=== PATIENT | female | born 1935 | race Caucasian/White ===

== ENCOUNTER 2016-10-19 09:34 | Emergency (ER) | payer MEDICARE, OTHER ==
[2016-10-19] MEDS ORDERED: Acetaminophen TAB* 325 MG PO ONE (10:58)
--- NOTE | 2016-10-19 11:00 | ED ---
HPI Chest Pain - HPI Summary HPI Summary: Pt here w/ fall last night and Rt sided chest pain as a result. Was walking to her chair at home when she lost her footing and fell forward. Denies hitting her head, LOC and no head or neck pain now. She does have Rt sided rib pain, worse w/ deep breathes and with standing - better w/ lying, resting. No shortness of breath. Denies tinnitus, change in vision, nausea, vomiting, photophobia, numbness, tingling, weakness. She denies chest pain, dizziness, SOB prior to falling. Admits she has been dealing with some dizziness intermittently over the past few months but actually feels better the past 2 days - no dizziness, fatigue - feels good. Takes care of her who had a stroke 6 years ago - she does have nursing help at the house as well. DM - intermittent control - admits to going in spurts of eating lots of sweets, then has phases where she doesn't eat sweets at all. Does not check blood sugar regularly. Osteoporosis - takes calcium - not sure if she takes bisphosphonate, etc, - History of Current Complaint Chief Complaint: EDChestWallPain Time Seen by Provider: 10/19/16 10:11 Hx Obtained From: Patient, Family/Account Services Analyst - daughters Pain Intensity: 2 - Allergy/Home Medications Allergies/Adverse Reactions: Allergies Allergy/AdvReac Type Severity Reaction Status Date / Time No Known Allergies Allergy Verified 05/24/13 13:22 PMH/Surg Hx/FS Hx/Imm Hx Previously Healthy: Yes Endocrine/Hematology History: Reports: Hx Diabetes - poorly controlled Cardiovascular History: Reports: Hx Hypertension Musculoskeletal History: Reports: Hx Osteoporosis, Other Musculoskeletal History - multiple fractures Neurological History: Reports: Hx Dementia - per daughter Infectious Disease History: No Infectious Disease History: Reports: Hx Shingles Denies: Traveled Outside the [place] in Last 30 Days - Family History Known Family History: Positive: Other - breast cancer - Social History Occupation: Retired Lives: With Family - Alcohol Use: None Hx Substance Use: No Substance Use Type: Reports: None Hx Tobacco Use: No Smoking Status (MU): Never Smoked Tobacco Review of Systems Negative: Fever, Chills Negative: Photophobia, Blurred Vision, Diplopia Negative: Dental Pain Positive: Chest Pain - Rt sided rib pain - worse w/ deep breath and transition from lying to sitting Negative: Shortness Of Breath, Cough Negative: Abdominal Pain, Vomiting, Diarrhea, Nausea Positive: no symptoms reported. Negative: flank pain, hematuria Musculoskeletal: Other - see above- no neck, shoulder, arm, back pain Negative: Rash, Bruising Negative: Headache, Weakness, Paresthesia, Numbness, Syncope, Slurred Speech Psychological: Normal All Other Systems Reviewed And Are Negative: Yes Physical Exam Triage Information Reviewed: Yes Vital Signs On Initial Exam: Initial Vitals Temp Pulse Resp BP Pulse Ox 98.2 F 78 16 166/80 96 10/19/16 09:41 10/19/16 09:41 10/19/16 09:41 10/19/16 09:41 10/19/16 09:41 Vital Signs Reviewed: Yes Appearance: Positive: Well-Appearing, No Pain Distress - at rest, Obese Skin: Positive: Warm, Dry - no erythema, no ecchymosis over affected area of Rt side of chest Head/Face: Positive: Normal Head/Face Inspection Eyes: Positive: Normal, EOMI, KATHLEEN, Conjunctiva Clear ENT: Positive: Normal ENT inspection, Hearing grossly normal, Pharynx normal - mucosa moist, Other - hearing aids in place B/L - no erythema, no blood observed Neck: Positive: Supple, Nontender Respiratory/Lung Sounds: Positive: Clear to Auscultation, Breath Sounds Present - Rt mid to lower ribs w/ TTP along anterior and posterior chest wall - equal chest rise - no flail chest - has mild pain w/ deep breath while sitting. Negative: Rales, Rhonchi, Subcutaneous Emphysema, Stridor, Tracheal Deviation, Wheezes Cardiovascular: Positive: Normal, RRR, Pulses are Symmetrical in both Upper and Lower Extremities, S1, S2 - w/ occasional irregular beat (PVC?). Negative: Murmur, Rub, Leg Edema Left, Leg Edema Right Abdomen Description: Positive: Nontender, No Organomegaly, Soft Bowel Sounds: Positive: Present Musculoskeletal: Positive: Normal, Strength/ROM Intact - FROM cervical spine and UE's w/o pain; spinous pp NTTP Neurological: Positive: Normal, Sensory/Motor Intact, Alert, Oriented to Person Place, Time, CN Intact II-III Psychiatric: Positive: Normal Diagnostics - Vital Signs Vital Signs Temp Pulse Resp BP Pulse Ox 10/19/16 09:41 98.2 F 78 16 166/80 96 - Laboratory Lab Statement: Any lab studies that have been ordered have been reviewed, and results considered in the medical decision making process. Chest Pain Course/Dx - Course Course Of Treatment: Pt appears to have attained 2 rib fractures acutely - no complications and pt using incentive spirometer well. She also had findings of chronic ischemia however w/ undx'd "dizziness" over the past few months, encouraged pt to review CT findings w/ PCP for further investigation. Discussed danger s/sx of when to return w/ pt and family who voice understanding. - Diagnoses Provider Diagnoses: Multiple fractures of ribs of right side, Fall Discharge - Discharge Plan Condition: Stable Disposition: HOME Prescriptions: HYDROcodone/ACETAMIN 5-325 MG* [[place] 5-325 TAB*] 1 tab PO Q6H PRN #10 tab MDD 4 PRN Reason: Pain Patient Education Materials: Rib Fracture (ED), Fall Prevention for Older Adults (ED) Referrals: Sj Richmond MD [Primary Care Provider] - Additional Instructions: You have multiple rib fractures on the Right side of your chest. These are treated conservatively. You may apply ice, take ibuprofen every 6 hours with food, and hold a pillow over the area with coughing, sneezing, laughing. You were prescribed a stronger pain medication for breakthrough pain as well. If you are not taking deep enough breaths on your incentive spirometer because of pain, take the stronger pain medication to help you. It is important that you use your incentive spirometer multiple times a day. Follow-up with PCP next week to recheck chest/ribs. *if you develop fever, shortness of breath or difficulty breathing prior to follow-up, return to ED NOTE: your head CT today did not reveal acute findings however there is a chronic are of lacunar infarct in the Left basal ganglia. This requires follow- up with PCP - an MRI and neurology evaluation may be warranted as patient has been struggling with dizziness and per family, "not herself" for many months now. If patient develops worsening of these symptoms or new neurological deficits, return to ED.
--- NOTE | 2016-10-19 11:20 | RAD ---
Indication: Fall. On aspirin. Comparison: None. Technique: Noncontrast CT vertex of skull through foramen magnum. Report: Mild prominence of the cerebral sulci and cerebellar fissures. Unremarkable ventricles and basal cisterns. Decreased density in the periventricular and subcortical white matter while non-specific is most likely due to chronic microangiopathy. 3 mm probable chronic lacunar infarct at the RIGHT basal ganglia. Negative for blanca matter white matter obscuration, intra or extra-axial hemorrhage, or mass effect. Unremarkable orbital contents. Bone density appears decreased corresponding with osteoporosis on November 02, 2011 DEXA scan. No suspicious focal calvarial or skull base lesions evident. Negative for fracture. Grossly clear paranasal sinuses and mastoid air spaces. Negative for scalp hematoma. IMPRESSION: No evidence for traumatic brain injury or acute intracranial process. Mild involutional change and stigmata of chronic small vessel ischemic disease. 3 mm chronic lacunar infarct LEFT basal ganglia.
--- NOTE | 2016-10-19 11:48 | RAD ---
Indication: Fall. Chest pain. 2 views of the chest and shape no mediastinal shift. Heart is of normal size and configuration. Lung sosa appear clear. IMPRESSION: No active cardiopulmonary disease is noted.
--- NOTE | 2016-10-19 11:48 | RAD ---
INDICATION: Right rib injury. TECHNIQUE: 4 views of the right ribs were obtained. FINDINGS: There is a nondisplaced fracture of the right lateral eighth rib and a slightly displaced fracture of the right lateral ninth rib. IMPRESSION: FRACTURES OF THE RIGHT EIGHTH AND NINTH RIBS.
[2016-10-19 11:56] VITALS: BP 157/72
[2016-10-19] MEDS ORDERED: Lidocaine PATCH 5%* 1 PATCH TRANSDERM ONE (13:00)
[2016-10-20] MEDS ORDERED: Lidocaine Patch REMOVE* 1 NOTE MISC PATCH OFF SCH (01:00)
== END 2016-10-19 13:19 | disposition home or self-care (01) ==
LOC: ED 09:34
DX: S22.41XA Multiple fractures of ribs, right side, initial encounter for closed fracture (principal); R07.9 Chest pain, unspecified; W19.XXXA Unspecified fall, initial encounter; Y93.9 Activity, unspecified; Y92.9 Unspecified place or not applicable; Y99.9 Unspecified external cause status
CPT/HCPCS: 70450; 71020; 99282; A9270-GY

== ENCOUNTER 2017-01-17 17:25 | Emergency (ER) | payer MEDICARE, OTHER ==
--- NOTE | 2017-01-17 20:05 | RAD ---
Indication: Months LEFT lateral chest tenderness. Comparison: October 19, 2016 chest radiograph. Technique: 4 view LEFT unilateral rib series. Report: Inferolateral skin marker indicating the site of clinical concern. No LEFT rib fracture or focal osseous lesion evident. Small calcified granuloma noted in the periphery of the LEFT midlung zone without concern. Negative for pleural effusion or pneumothorax. IMPRESSION: Negative for LEFT rib fracture.
--- NOTE | 2017-01-17 20:07 | RAD ---
Indication: Pain at the T10 level 4 months. History of renal cell carcinoma. Comparison: April 13, 2011 CT. Technique: AP and lateral views thoracic spine. Report: Negative for fracture or malalignment. No suspicious focal osseous lesions evident. Diffuse degenerative spondylosis and multilevel segmental ossification of the anterior longitudinal ligament of the thoracic spine consistent with Diffuse Idiopathic Skeletal Hyperostosis (DISH) without significant interval change. Unremarkable paraspinal soft tissue contours. IMPRESSION: Multilevel thoracic degenerative spondylosis and Multilevel segmental ossification of the anterior longitudinal ligament of the thoracic spine consistent with Diffuse Idiopathic Skeletal Hyperostosis (DISH). No fracture or suspicious focal osseous lesion evident.
[2017-01-17 20:33] VITALS: BP 134/85
--- NOTE | 2017-01-17 20:33 | UC ---
Back Pain HPI - HPI Summary HPI Summary: 81 yo female with thoracic back pain radiating to left ches x months seems to come and go this is in area that she had shingles about a yr ago she did fall in OCT hx renal cell CA - History of Current Complaint Chief Complaint: UCBackPain Stated Complaint: BACK PAIN Time Seen by Provider: 01/17/17 18:09 Onset/Duration: Sudden Onset, Lasting Weeks Timing: Intermittent, Lasting Minutes Severity Initially: Moderate Severity Currently: None Pain Intensity: 0 Pain Scale Used: 0-10 Numeric Back Pain: Is Discrete @ Character: Burning Aggravating: Movement Alleviating: Position - Allergies/Home Medications Allergies/Adverse Reactions: Allergies Allergy/AdvReac Type Severity Reaction Status Date / Time No Known Allergies Allergy Verified 01/17/17 17:41 Home Medications: Home Medications DOXYcycline CAP(*) [DOXYcycline 100MG CAP(*)] 01/17/17 [History] PMH/Surg Hx/FS Hx/Imm Hx Previously Healthy: Yes Endocrine History Of: Reports: Diabetes - poorly controlled Cardiovascular History Of: Reports: Hypertension Neurological History Of: Reports: Dementia - per daughter - Surgical History Surgical History: Yes Surgery Procedure, Year, and Place: nephrectomy, hysterectomy, appendectomy, colostomy and reversal - Family History Known Family History: Positive: Hypertension, Other - breast cancer - Social History Alcohol Use: None Substance Use Type: None Smoking Status (MU): Never Smoked Tobacco Review of Systems Constitutional: Negative Skin: Negative Eyes: Negative ENT: Negative Respiratory: Negative Cardiovascular: Negative Gastrointestinal: Negative Genitourinary: Negative Motor: Negative Neurovascular: Negative Musculoskeletal: Arthralgia, Myalgia Neurological: Negative Psychological: Negative All Other Systems Reviewed And Are Negative: Yes Physical Exam Triage Information Reviewed: Yes Appearance: Well-Appearing, No Pain Distress, Well-Nourished Vital Signs: Initial Vital Signs Temp 98.2 F 01/17/17 17:47 Pulse 93 01/17/17 17:47 Resp 18 01/17/17 17:47 BP 153/82 01/17/17 17:47 Pulse Ox 97 01/17/17 17:47 Eyes: Positive: Conjunctiva Clear ENT: Positive: Hearing grossly normal. Negative: Nasal congestion, Nasal drainage, Trismus, Muffled/hoarse voice Neck: Positive: Supple Respiratory: Positive: Lungs clear, Normal breath sounds, No respiratory distress Cardiovascular: Positive: RRR, No Murmur. Negative: Tachycardia, Bradycardia Musculoskeletal: Positive: ROM Intact, No Edema Neurological: Positive: Alert Psychological Exam: Normal Skin: Negative: breakdown Back Pain Course/Dx - Differential Dx/Diagnosis Provider Diagnoses: DDD. possible post herpetic neuralgia Discharge - Discharge Plan Condition: Stable Disposition: HOME Referrals: Sj Richmond MD [Primary Care Provider] - As Soon As Possible Additional Instructions: you pain may be due to post herpetic neuralgia Images Front/Back of Body, Lg (Stokes): 1 - tender here
== END 2017-01-17 20:35 | disposition home or self-care (01) ==
LOC: UCEAST 17:25
DX: M51.34 Other intervertebral disc degeneration, thoracic region (principal); E11.9 Type 2 diabetes mellitus without complications; I10 Essential (primary) hypertension; F03.90 Unspecified dementia, unspecified severity, without behavioral disturbance, psychotic disturbance, mood disturbance, and anxiety; Z85.528 Personal history of other malignant neoplasm of kidney; Z90.5 Acquired absence of kidney; Z90.710 Acquired absence of both cervix and uterus
CPT/HCPCS: 72070; 81003; 87086; 99212; G0463

== ENCOUNTER 2018-01-02 03:16 | Inpatient (IN) | payer MEDICARE, OTHER ==
[2018-01-02] MEDS ORDERED: Ondansetron INJ* 2 MG/ML VIAL IV ONE (03:36)
[2018-01-02] MEDS ORDERED: fentaNYL* 50 MCG/ML 2 ML VIAL (100 MCG VIAL) IV SLOW PU ONE (04:26)
[2018-01-02 04:28] LABS: ABS Basophils 0.1 10^3/ul (0-0.2); ABS Eosinophils 0 10^3/ul (0-0.6); ABS Lymphocytes 0.6 10^3/ul (1.0-4.8); ABS Monocytes 1.1 10^3/ul (0-0.8); ABS Neutrophils 11.4 10^3/ul (1.5-7.7); ABS Nucleated RBC 0 10^3/ul; Eosinophil % 0 % (0-6); Hematocrit 42 % (35-47); Hemoglobin 13.9 g/dl (12.0-16.0); Lymphocyte % 4.9 % (25-47); Mean Corpuscular HGB Conc 33 g/dl (31-36); Mean Corpuscular Hemoglobin 29 pg (27-31); Mean Corpuscular Volume 88 fL (80-97); Mean Platelet Volume 8.6 um3 (7.4-10.4); Nucleated Red Blood Cells % 0; Platelet Count 193 10^3/ul (150-450); Red Blood Count 4.83 10^6/ul (4.0-5.4); Red Cell Distribution Width 15 % (10.5-15); White Blood Count 13.2 10^3/ul (3.5-10.8)
[2018-01-02 04:46] LABS: EGFR Non-African American 61.4 (>60)
[2018-01-02] MEDS ORDERED: Iohexol 300* (CONTRAST) 10 ML SDV IV ONE (04:54)
[2018-01-02] MEDS ORDERED: Iodixanol 320 (CONTRAST) 100 ML SDV IV ONE (05:50)
--- NOTE | 2018-01-02 07:05 | ED ---
Fito Conn Gabriel, scribed for Keagan Casillas MD on 01/02/18 at 0353 . Abdominal Pain/Female - HPI Summary HPI Summary: This patient is a 82 year old [facility] [place] by her daughter in law with a chief complaint of intermittent RLQ pain that began a week ago. The patient rates the pain 6/10 in severity. Patient reports SOB and fever. Hx dementia. - History of Current Complaint Chief Complaint: EDAbdPain Stated Complaint: ABD PAIN Time Seen by Provider: 01/02/18 03:27 Hx Obtained From: Patient, Family/Languages And Literature Instructor Hx From Patient Unobtainable Due To: Dementia - limited Onset/Duration: Lasting Weeks, Still Present Timing: Intermittent Episode Lasting Severity Initially: Moderate Severity Currently: Moderate Pain Intensity: 6 Pain Scale Used: 0-10 Numeric Radiates: No Associated Signs and Symptoms: Positive: Other: - SOB and Fever Allergies/Adverse Reactions: Allergies Allergy/AdvReac Type Severity Reaction Status Date / Time No Known Allergies Allergy Verified 01/17/17 17:41 PMH/Surg Hx/FS Hx/Imm Hx Endocrine/Hematology History: Reports: Hx Diabetes - poorly controlled Cardiovascular History: Reports: Hx Hypertension Musculoskeletal History: Reports: Hx Osteoporosis, Other Musculoskeletal History - multiple fractures Neurological History: Reports: Hx Dementia - per daughter - Cancer History Cancer Type, Location and Year: kidney - Surgical History Surgery Procedure, Year, and Place: nephrectomy, hysterectomy, appendectomy, colostomy and reversal Infectious Disease History: No Infectious Disease History: Reports: Hx Shingles Denies: Traveled Outside the [place] in Last 30 Days - Family History Known Family History: Positive: Hypertension, Other - breast cancer - Social History Lives: With Family Alcohol Use: None Hx Substance Use: No Substance Use Type: Reports: None Hx Tobacco Use: No Smoking Status (MU): Never Smoked Tobacco Review of Systems Positive: Fever Positive: Shortness Of Breath Positive: Abdominal Pain All Other Systems Reviewed And Are Negative: Yes Physical Exam - Summary Physical Exam Summary: Appearance: Well appearing, no pain distress Skin: warm, dry, reflects adequate perfusion Head/face: normal Eyes: EOMI, KATHLEEN ENT: mucus membranes are dry Neck: supple, non-tender Respiratory: CTA, breath sounds present Cardiovascular: tachy but regular, pulses symmetrical Abdomen: RUQ is TTP, positive murphys sign Bowel Sounds: present Musculoskeletal: normal, strength/ROM intact Neuro: normal, sensory motor intact, A&Ox3 Triage Information Reviewed: Yes Vital Signs On Initial Exam: Initial Vitals Temp Pulse Resp BP Pulse Ox 99.5 F 111 28 167/105 95 01/02/18 03:20 01/02/18 03:20 01/02/18 03:20 01/02/18 03:20 01/02/18 03:20 Vital Signs Reviewed: Yes Diagnostics - Vital Signs Vital Signs Temp Pulse Resp BP Pulse Ox 01/02/18 03:28 105 25 95 01/02/18 03:27 108 25 167/105 96 01/02/18 03:20 99.5 F 111 28 167/105 95 - Laboratory Lab Results: Lab Results 01/02/18 01/02/18 01/02/18 Range/Units 04:20 04:20 04:20 WBC 13.2 H (3.5-10.8) 10^3/ul RBC 4.83 (4.0-5.4) 10^6/ul Hgb 13.9 (12.0-16.0) g/dl Hct 42 (35-47) % MCV 88 (80-97) fL MCH 29 (27-31) pg MCHC 33 (31-36) g/dl RDW 15 (10.5-15) % Plt Count 193 (150-450) 10^3/ul MPV 8.6 (7.4-10.4) um3 Neut % (Auto) 86.7 H (38-83) % Lymph % (Auto) 4.9 L (25-47) % [place] % (Auto) 8.0 H (0-7) % Eos % (Auto) 0 (0-6) % Baso % (Auto) 0.4 (0-2) % Absolute Neuts (auto) 11.4 H (1.5-7.7) 10^3/ul Absolute Lymphs (auto) 0.6 L (1.0-4.8) 10^3/ul Absolute Monos (auto) 1.1 H (0-0.8) 10^3/ul Absolute Eos (auto) 0 (0-0.6) 10^3/ul Absolute Basos (auto) 0.1 (0-0.2) 10^3/ul Absolute Nucleated RBC 0 10^3/ul Nucleated RBC % 0 Sodium 134 L (139-145) mmol/L Potassium 3.9 (3.5-5.0) mmol/L Chloride 100 L (101-111) mmol/L Carbon Dioxide 24 (22-32) mmol/L Anion Gap 10 (2-11) mmol/L BUN 20 (6-24) mg/dL Creatinine 0.88 (0.51-0.95) mg/dL Est GFR ( Amer) 78.9 (>60) Est GFR (Non-Af Amer) 61.4 (>60) BUN/Creatinine Ratio 22.7 H (8-20) Glucose 226 H (70-100) mg/dL Lactic Acid 1.4 (0.5-2.0) mmol/L Calcium 9.5 (8.6-10.3) mg/dL Total Bilirubin 0.70 (0.2-1.0) mg/dL AST 38 (13-39) U/L ALT 12 (7-52) U/L Alkaline Phosphatase 39 (34-104) U/L Troponin I 0.02 (<0.04) ng/mL C-Reactive Protein 61.77 H (< 5.00) mg/L Total Protein 7.4 (6.4-8.9) g/dL Albumin 4.0 (3.2-5.2) g/dL Globulin 3.4 (2-4) g/dL Albumin/Globulin Ratio 1.2 (1-3) Lipase 22 (11.0-82.0) U/L Result Diagrams: 01/02/18 04:20 01/02/18 04:20 Lab Statement: Any lab studies that have been ordered have been reviewed, and results considered in the medical decision making process. - Radiology CXR Radiology Interpretation Completed By: ED Physician - chronic changes no acute findings - CT CT ABD/Pelvis CT Interpretation Completed By: Radiologist - large right intrahepatic and right paraspinal soft tissue masses within or adjacent to the right renal fossa likely represent recurrent neoplasm. Multiple splenic hilar masses are also consistent with metastases possible lymph nodes. Small splenic infarct may be acute , possibly related to emboli were tumor compression of the splenic artery. Left adrenal nodule may be adenoma or metastases. Questionable lytic metastases in T7 and T8. Minimal perihepatic tiny nonspecific right hepatic lobe hypo density. 1.4cm hypodensity of the pancreas may be a psuedocyst ED physician has reviewed this radiology report. - EKG 0338 Cardiac Rate: Tachycardia EKG Rhythm: Sinus Tachycardia - at [address] Segment: Non-Specific EKG Interpretation: non specific intraventricular conduction delay, normal axis Re-Evaluation - Re-Evaluation First Eval Change: Improved Abdominal Pain Fem Course/Dx - Course Course Of Treatment: Patient with right-sided abdominal pain that seems worse in the right upper quadrant. Her history is somewhat limited by dementia. She is sure she had several abdominal surgeries but is not entirely sure which. Her pain is modest at this time. CT scan shows widespread tumor burden likely related to her prior history of renal cell carcinoma. There is also splenic infarct and possible tumor compression of the splenic artery. She has lytic lesions noted in the spine. I have presented this to the family and shown them the imaging. They wish to have the patient admitted here given that her requires total care at home from stroke. As such, I have discussed the case with the hospitalist who will evaluate and admit. - Diagnoses Provider Diagnoses: Right sided abdominal pain, Renal cell cancer, Metastatic cancer, Splenic infarct - Provider Notifications Discussed Care Of Patient With: Marek Sawyer - states he will feel come down, evaluate and make disposition. Time Discussed With Above Provider: 06:50 Instructed by Provider To: Admit As Inpatient Discharge - Sign-Out/Discharge Documenting (check all that apply): Discharge/Admit/Transfer - admitted - Discharge Plan Condition: Fair Disposition: ADMITTED TO [facility] Referrals: Sj Richmond MD [Primary Care Provider] - - Billing Disposition and Condition Condition: FAIR Disposition: [facility] The documentation as recorded by the Fito bustamante Gabriel accurately reflects the service I personally performed and the decisions made by me, Keagan Casillas MD.
[2018-01-02 08:30] LABS: Urine Appearance Clear; Urine Blood Negative (Negative); Urine Color Yellow; Urine Ketones Trace (Negative); Urine Protein 2+(100 mg/dL) (Negative); Urine Specific Gravity > 1.060 (1.010-1.030); Urine Urobilinogen Negative (Negative)
--- NOTE | 2018-01-02 08:43 | RAD ---
INDICATION: Upper abdominal pain. COMPARISON: Correlation is made with a prior chest x-ray study from October 19, 2016. TECHNIQUE: A portable upright view of the chest was obtained. FINDINGS: The heart is within normal limits in size for this portable exam. The lungs are underinflated and grossly clear. No pleural effusion is seen. No free intraperitoneal air is appreciated. IMPRESSION: NO EVIDENCE FOR ACUTE FINDING.
--- NOTE | 2018-01-02 08:53 | CONSULT ---
Subjective Date of Service: 01/02/18 Interval History: The patient was in her usual state of health until 2 days ago when she started having vomiting. About 2 AM today her called one of his children to say she had abdominal pain. He activated their emergency alert system. The patient has not vomited here. She got 1 dose of fentanyl 25 mcg at 04:27 hrs. She drank some water. I spoke with Toan Gonzalez, and Basilio. Dr. Richmond will order a CT- guided bx of her R flank mass and request an appt with YESSY for 2 days after the bx. I transmitted rx's for ondansetron ODT and hydrocodone/APAP /325 to Danis Gold. The patient is alert, sociable and cooperative. She can answer questions about her condition and can state her full name. Review of Systems - Measurements Intake and Output: Intake and Output Last 24 Hours 12/31/17 01/01/18 01/02/18 01/03/18 06:59 06:59 06:59 06:59 Weight 190 lb Objective Vital Signs - 8 hr 01/02/18 01/02/18 01/02/18 03:20 03:27 03:28 Temperature 99.5 F Pulse Rate 111 108 105 Respiratory 28 25 25 Rate Blood Pressure 167/105 167/105 (mmHg) O2 Sat by Pulse 95 96 95 Oximetry 01/02/18 01/02/18 01/02/18 03:57 04:00 04:35 Temperature Pulse Rate 105 112 Respiratory 19 25 20 Rate Blood Pressure 165/97 (mmHg) O2 Sat by Pulse 96 96 Oximetry 01/02/18 01/02/18 01/02/18 04:56 04:57 05:00 Temperature Pulse Rate 108 119 116 Respiratory 23 24 22 Rate Blood Pressure 169/96 165/97 (mmHg) O2 Sat by Pulse 91 91 91 Oximetry 01/02/18 01/02/18 01/02/18 05:27 05:57 06:00 Temperature Pulse Rate 117 117 114 Respiratory 24 23 22 Rate Blood Pressure 172/101 165/95 (mmHg) O2 Sat by Pulse 93 90 90 Oximetry 01/02/18 01/02/18 01/02/18 06:27 06:57 07:00 Temperature Pulse Rate 116 114 112 Respiratory 22 26 24 Rate Blood Pressure 132/76 154/90 (mmHg) O2 Sat by Pulse 93 92 93 Oximetry 01/02/18 01/02/18 01/02/18 07:06 07:29 07:57 Temperature Pulse Rate 115 129 121 Respiratory 20 31 Rate Blood Pressure 154/90 129/101 126/92 (mmHg) O2 Sat by Pulse 93 95 93 Oximetry 01/02/18 08:00 Temperature Pulse Rate 118 Respiratory Rate Blood Pressure (mmHg) O2 Sat by Pulse 93 Oximetry Result Diagrams: 01/02/18 04:20 01/02/18 04:20 Additional Lab and Data: Lab Results 01/02/18 01/02/18 01/02/18 Range/Units 04:20 04:20 04:20 WBC 13.2 H (3.5-10.8) 10^3/ul RBC 4.83 (4.0-5.4) 10^6/ul Hgb 13.9 (12.0-16.0) g/dl Hct 42 (35-47) % MCV 88 (80-97) fL MCH 29 (27-31) pg MCHC 33 (31-36) g/dl RDW 15 (10.5-15) % Plt Count 193 (150-450) 10^3/ul MPV 8.6 (7.4-10.4) um3 Neut % (Auto) 86.7 H (38-83) % Lymph % (Auto) 4.9 L (25-47) % [place] % (Auto) 8.0 H (0-7) % Eos % (Auto) 0 (0-6) % Baso % (Auto) 0.4 (0-2) % Absolute Neuts (auto) 11.4 H (1.5-7.7) 10^3/ul Absolute Lymphs (auto) 0.6 L (1.0-4.8) 10^3/ul Absolute Monos (auto) 1.1 H (0-0.8) 10^3/ul Absolute Eos (auto) 0 (0-0.6) 10^3/ul Absolute Basos (auto) 0.1 (0-0.2) 10^3/ul Absolute Nucleated RBC 0 10^3/ul Nucleated RBC % 0 Sodium 134 L (139-145) mmol/L Potassium 3.9 (3.5-5.0) mmol/L Chloride 100 L (101-111) mmol/L Carbon Dioxide 24 (22-32) mmol/L Anion Gap 10 (2-11) mmol/L BUN 20 (6-24) mg/dL Creatinine 0.88 (0.51-0.95) mg/dL Est GFR ( Amer) 78.9 (>60) Est GFR (Non-Af Amer) 61.4 (>60) BUN/Creatinine Ratio 22.7 H (8-20) Glucose 226 H (70-100) mg/dL Lactic Acid 1.4 (0.5-2.0) mmol/L Calcium 9.5 (8.6-10.3) mg/dL Total Bilirubin 0.70 (0.2-1.0) mg/dL AST 38 (13-39) U/L ALT 12 (7-52) U/L Alkaline Phosphatase 39 (34-104) U/L Troponin I 0.02 (<0.04) ng/mL C-Reactive Protein 61.77 H (< 5.00) mg/L Total Protein 7.4 (6.4-8.9) g/dL Albumin 4.0 (3.2-5.2) g/dL Globulin 3.4 (2-4) g/dL Albumin/Globulin Ratio 1.2 (1-3) Lipase 22 (11.0-82.0) U/L Assessment/Plan - Billing Plan By Medical Problem: 1. 2. VTE PPX: Diet: Code Status: Admission Status and Rationale:
--- NOTE | 2018-01-02 09:04 | RAD ---
CLINICAL HISTORY: Right upper quadrant pain. Relevant surgical history includes left nephrectomy, hysterectomy, appendectomy and colostomy with subsequent reversal. COMPARISON: Most recent comparison CT examination is dated January 11, 2009 TECHNIQUE: Contrast enhanced CT examination of the abdomen and pelvis from the lung bases through the initial tuberosities. The patient received 96 mL Visipaque 320 intravenously prior to imaging. FINDINGS: Unless otherwise specified comparisons below reference to January 11, 2009 CT. VISUALIZED LUNG BASES: There are hypoventilatory changes at the bilateral lung bases more severely on the right and left. There is a slight right-sided pleural effusion. ABDOMEN AND PELVIS: There is a small amount of perihepatic fluid. Stable subcentimeter hypodensities in the right lobe of the liver unchanged from the prior CT examination. The spleen and pancreas are normal in appearance. Medial to the spleen are multiple soft tissue masses the largest measuring 3.2 x 4 cm in the axial plane (axial image 21). At the left adrenal gland there is a soft tissue lesion measuring 1.2 x 1.8 cm in the axial plane increased from 1 cm on the previous CT examination. The right adrenal gland appears to be normal. The gallbladder is normal. The left kidney is normal. The patient is status post right nephrectomy. Abutting the posterior inferior margin of the right lobe of the liver there is a soft tissue mass measuring approximately 6.3 x 8 cm in the axial plane and 6.1 cm in the cephalocaudal dimension. More inferiorly there is gross enlargement of right retroperitoneal lymph nodes adjacent to the right lateral margin of the spine measuring up to 5.6 x 4.2 cm in the axial plane. Evaluation of the gastrointestinal tract is limited without oral contrast. The small and large bowel are not distended. Consistent with the patient's surgical history the appendix is not visualized. There are scattered rectosigmoid diverticula but no focal inflammatory change of the bowel. Despite reports of hysterectomy, the appropriately atrophic and partially calcified uterus is seen. There is trace fluid in the pelvis. The abdominal aorta and iliac arteries are normal in course and diameter. The patient is status post transpedicular posterior dario fixation of L4/L5. Degenerative changes of the lower thoracic and lumbar spine are noted. There are no suspicious bone lesions. IMPRESSION: 1. Presumably the patient's right nephrectomy was due to renal cell carcinoma. The findings on today's CT examination indicate recurrence of malignancy in the right renal bed with lymphadenopathy in the right retroperitoneal lymph nodes and with either lymph nodes or soft tissue implants immediately medial to the spleen. 2. The patient's surgical history includes hysterectomy though the uterus appears to be visible in the pelvis. Please confirm the patient's surgical history. 3. There is free fluid in the pelvis which is considered abnormal for a postmenopausal woman and may be related to additional metastases related to the process described above. 4. Additional chronic, degenerative and iatrogenic findings described in body the report.
--- NOTE | 2018-01-02 10:50 | ADMNOTE ---
Subjective Date of Service: 01/02/18 Interval History: ADMISSION HISTORY AND PHYSICAL EXAM: Allergies Allergy/AdvReac Type Severity Reaction Status Date / Time No Known Allergies Allergy Verified 01/17/17 17:41 Home Medications Medication Instructions Recorded Confirmed Type Aspirin EC TAB* [Ecotrin EC Low 81 mg PO DAILY 11/17/15 01/02/18 History Dose*] Losartan TAB* [Cozaar TAB*] 50 mg PO DAILY 11/17/15 01/02/18 History Pioglitazone TAB* [Actos TAB*] 30 mg PO DAILY 11/17/15 01/02/18 History metFORMIN* [Glucophage*] 1,000 mg PO QAM 11/17/15 01/02/18 History metFORMIN* [Glucophage*] 500 mg PO BEDTIME 11/17/15 01/02/18 History Cholecalciferol TAB* [Vitamin D 1,000 unit PO DAILY 01/02/18 01/02/18 History TAB*] Hydrocodone/Acetaminophen 1 each PO Q3H PRN #40 tablet MDD 4 01/02/18 Rx [Hydrocodone-Acetamin 5-325 mg] Memantine TAB* [Namenda TAB*] 10 mg PO DAILY 01/02/18 01/02/18 History Ondansetron [Ondansetron Odt] 4 mg PO Q3H PRN #30 tab.rapdis 01/02/18 Rx HPI: The patient was in her usual state of health until about 2 days ago when she had intermiitent emesis. During the last night she c/o abdominal pain. Her activated their emergency call button and also called a family member. The patient herslef has very poor memory and cannot give an accurate history. She admists to some abd pain now, denies nausea. Family History: Findings - Unremarkable Social History: Findings - Live withe her . Her daughter Amina is her SDM. No alcohol or tobacco use. 6 children. Past Medical History: Findings - R nephrectomy 12/2005 for renal cell ca. Dementia, DM. Review of Systems - Measurements Intake and Output: Intake and Output Last 24 Hours 12/31/17 01/01/18 01/02/18 01/03/18 06:59 06:59 06:59 06:59 Weight 190 lb - Review of Systems Constitutional Symptoms: Negative: Weight Gain, Weight Loss, Weakness, Fatigue, Fever, Night Sweats, Unexplained Falls, Other Dermatology: Positive: Normal HEENT: Positive: Normal Eyes: Positive: Normal Thyroid: Positive: Normal Pulmonary: Positive: Normal Gastroenterology: Positive: Abdominal Pain, Vomiting Genital - Urinary: Positive: Normal Musculoskeletal: Negative: Joint Pain, Joint Stiffness, Arthritis, Osteoporosis, Low Back Pain , Sciatica, Joint Deformities, Kyphoscoliosis, Other Endocrinology: Positive: Normal Neurology: Positive: Other - dementia Psychiatry: Positive: Normal Allergic/Immunologic: Negative: Hx Anaphylaxis, Hx Angioedema, Hx Environmental, Hx Seasonal, Athsma, Hx HIV, Immunocompromise, Swollen Glands LymphNodes, Other Objective Vital Signs - 8 hr 01/02/18 01/02/18 01/02/18 03:20 03:27 03:28 Temperature 99.5 F Pulse Rate 111 108 105 Respiratory 28 25 25 Rate Blood Pressure 167/105 167/105 (mmHg) O2 Sat by Pulse 95 96 95 Oximetry 01/02/18 01/02/18 01/02/18 03:57 04:00 04:35 Temperature Pulse Rate 105 112 Respiratory 19 25 20 Rate Blood Pressure 165/97 (mmHg) O2 Sat by Pulse 96 96 Oximetry 01/02/18 01/02/18 01/02/18 04:56 04:57 05:00 Temperature Pulse Rate 108 119 116 Respiratory 23 24 22 Rate Blood Pressure 169/96 165/97 (mmHg) O2 Sat by Pulse 91 91 91 Oximetry 01/02/18 01/02/18 01/02/18 05:27 05:57 06:00 Temperature Pulse Rate 117 117 114 Respiratory 24 23 22 Rate Blood Pressure 172/101 165/95 (mmHg) O2 Sat by Pulse 93 90 90 Oximetry 01/02/18 01/02/18 01/02/18 06:27 06:57 07:00 Temperature Pulse Rate 116 114 112 Respiratory 22 26 24 Rate Blood Pressure 132/76 154/90 (mmHg) O2 Sat by Pulse 93 92 93 Oximetry 01/02/18 01/02/18 01/02/18 07:06 07:29 07:57 Temperature Pulse Rate 115 129 121 Respiratory 20 31 Rate Blood Pressure 154/90 129/101 126/92 (mmHg) O2 Sat by Pulse 93 95 93 Oximetry 01/02/18 08:00 Temperature Pulse Rate 118 Respiratory Rate Blood Pressure (mmHg) O2 Sat by Pulse 93 Oximetry Oxygen Devices in Use Now: None - Alert, partly up in bed. In good spirits. Looks comfortable. Eyes: No Scleral Icterus Neck: NL Appearance and Movements; NL JVP, No Thyroid Enlargement, Masses Respiratory: Symmetrical Chest Expansion and Respiratory Effort, Clear to Auscultation, Clear to Percussion Abdominal: NL Sounds; No Tenderness; No Distention, No Hepatosplenomegaly, - Extremities: No Edema, No Clubbing, Cyanosis, - Skin: No Nodules or Sclerosis, - - seborrhea Neurological: NL Sensation, - - Able to state her full name. No tremor. Poor memory. DUNAWAY. Result Diagrams: 01/02/18 04:20 01/02/18 04:20 Additional Lab and Data: Lab Results 01/02/18 01/02/18 01/02/18 Range/Units 04:20 04:20 04:20 WBC 13.2 H (3.5-10.8) 10^3/ul RBC 4.83 (4.0-5.4) 10^6/ul Hgb 13.9 (12.0-16.0) g/dl Hct 42 (35-47) % MCV 88 (80-97) fL MCH 29 (27-31) pg MCHC 33 (31-36) g/dl RDW 15 (10.5-15) % Plt Count 193 (150-450) 10^3/ul MPV 8.6 (7.4-10.4) um3 Neut % (Auto) 86.7 H (38-83) % Lymph % (Auto) 4.9 L (25-47) % [place] % (Auto) 8.0 H (0-7) % Eos % (Auto) 0 (0-6) % Baso % (Auto) 0.4 (0-2) % Absolute Neuts (auto) 11.4 H (1.5-7.7) 10^3/ul Absolute Lymphs (auto) 0.6 L (1.0-4.8) 10^3/ul Absolute Monos (auto) 1.1 H (0-0.8) 10^3/ul Absolute Eos (auto) 0 (0-0.6) 10^3/ul Absolute Basos (auto) 0.1 (0-0.2) 10^3/ul Absolute Nucleated RBC 0 10^3/ul Nucleated RBC % 0 Sodium 134 L (139-145) mmol/L Potassium 3.9 (3.5-5.0) mmol/L Chloride 100 L (101-111) mmol/L Carbon Dioxide 24 (22-32) mmol/L Anion Gap 10 (2-11) mmol/L BUN 20 (6-24) mg/dL Creatinine 0.88 (0.51-0.95) mg/dL Est GFR ( Amer) 78.9 (>60) Est GFR (Non-Af Amer) 61.4 (>60) BUN/Creatinine Ratio 22.7 H (8-20) Glucose 226 H (70-100) mg/dL Lactic Acid 1.4 (0.5-2.0) mmol/L Calcium 9.5 (8.6-10.3) mg/dL Total Bilirubin 0.70 (0.2-1.0) mg/dL AST 38 (13-39) U/L ALT 12 (7-52) U/L Alkaline Phosphatase 39 (34-104) U/L Troponin I 0.02 (<0.04) ng/mL C-Reactive Protein 61.77 H (< 5.00) mg/L Total Protein 7.4 (6.4-8.9) g/dL Albumin 4.0 (3.2-5.2) g/dL Globulin 3.4 (2-4) g/dL Albumin/Globulin Ratio 1.2 (1-3) Lipase 22 (11.0-82.0) U/L Assess/Plan/Problems-Billing Plan By Medical Problem: 1. 2. VTE PPX: Diet: Code Status: Admission Status and Rationale: - Patient Problems (1) Renal cell carcinoma Current Visit: Yes Status: Acute Code(s): C64.9 - MALIGNANT NEOPLASM OF UNSP KIDNEY, EXCEPT RENAL PELVIS SNOMED Code(s): 137694067 Comment: CT guided bx requested. Start fentanyl patch 12 mcg/hr, prn oxycodone, prn ondansetron. IV fluids for 2 L. (2) Diabetes Current Visit: Yes Status: Acute Code(s): E11.9 - TYPE 2 DIABETES MELLITUS WITHOUT COMPLICATIONS SNOMED Code(s): 42619683 Comment: Hold metformin, pioglitazone. Lispro by [facility]. (3) Dementia Current Visit: Yes Status: Acute Code(s): F03.90 - UNSPECIFIED DEMENTIA WITHOUT BEHAVIORAL DISTURBANCE SNOMED Code(s): 27408372 Comment: Patient felt to not be safe at home by her family. PT/OT alex. (4) HTN (hypertension) Current Visit: Yes Status: Acute Code(s): I10 - ESSENTIAL (PRIMARY) HYPERTENSION SNOMED Code(s): 14534022 Comment: Hold losartan. (5) Emesis Current Visit: Yes Status: Acute Code(s): R11.10 - VOMITING, UNSPECIFIED SNOMED Code(s): 494787410 Comment: PRN ondansetron ODT. 2 L IV fluids then d/c.
[2018-01-02] MEDS ORDERED: Dextrose 50% Syringe 50 ML* 25 GM/50 ML SYRINGE IV PUSH PRN (11:03)
[2018-01-02] MEDS: fentaNYL PATCH 12 MCG/HR TRANSDERM SCH (12:33)
[2018-01-02] MEDS: Insulin LISPRO* 1 UNITS UNIT SUBCUT SCH ×3 (12:34→22:13)
[2018-01-02] MEDS: HYDROcodone/ACETAMIN 5-325 MG* 1 TAB PO PRN (13:41)
[2018-01-02] MEDS: Ondansetron ODT TAB* 4 MG SL PRN ×2 (13:42→22:02)
[2018-01-02] MEDS: D5LR 20 MEQ KCL 1000 ML BAG* 1,000 ML IV SCH ×2 (13:56→22:18)
[2018-01-03] MEDS: hydrALAZINE IV* 20 MG/ML VIAL IV PRN (04:07)
[2018-01-03] MEDS ORDERED: Metoprolol Tartrate IV* 1 MG/ML 5 ML VIAL IV ONE (06:14)
[2018-01-03] MEDS ORDERED: Metoprolol Tartrate IV* 1 MG/ML 5 ML VIAL ONE (06:21)
[2018-01-03 06:36] LABS: Platelet Count 159 10^3/ul (150-450)
[2018-01-03 07:03] LABS: INR 1.14 (0.77-1.02)
--- NOTE | 2018-01-03 07:40 | RAD ---
INDICATION: Soft tissue mass in the right renal fossa in a woman with a history of nephrectomy for renal cell cancer. COMPARISON: CT of the abdomen and pelvis January 02, 2018 TECHNIQUE: Real time ultrasound images of the right renal fossa were acquired in katz scale and Doppler color flow. FINDINGS: Evaluation of the right renal fossa shows a soft tissue mass below the posterior margin of the right lobe of the liver measuring 6.1 x 4.5 x 4.7 cm. More medially there is a second mass measuring 6.4 x 3.3 x 5.1 cm. Trace fluid fluid is also seen. IMPRESSION: 2 soft tissue mass in the right renal fossa corresponding to masses seen on the same day CT of the abdomen and pelvis. These appear to be amenable to ultrasound-guided biopsy.
[2018-01-03] MEDS: fentaNYL Patch Check Q Shift 1 NOTE SCH ×2 (07:54→19:26)
[2018-01-03] MEDS: Insulin LISPRO* 1 UNITS UNIT SUBCUT SCH ×4 (08:56→20:52)
[2018-01-03] MEDS: HYDROcodone/ACETAMIN 5-325 MG* 1 TAB PO PRN (08:57)
[2018-01-03] MEDS: Memantine TAB* 10 MG PO SCH (08:58)
[2018-01-03] MEDS: Cholecalciferol TAB* 1000 UNITS PO SCH (08:59)
[2018-01-03] MEDS ORDERED: Pioglitazone TAB* 30 MG PO SCH (09:00)
[2018-01-03] MEDS ORDERED: fentaNYL* 50 MCG/ML 2 ML VIAL (100 MCG VIAL) ONE (11:49)
--- NOTE | 2018-01-03 15:11 | RAD ---
INDICATION: Subhepatic right renal fossa soft tissue mass in a patient with a history of renal cell carcinoma. COMPARISON: CT abdomen and pelvis January 02, 2018 The benefits and risks of procedure explained to the patient and the patient's daughter and the patient's daughter signed informed consent. Multiple images of the right flank were obtained. The soft tissue mass in question was identified and a percutaneous tract was determined. A time out was performed before beginning the procedure. The patient was prepped and draped in the usual sterile fashion. The skin and tissue overlying the lymph node were anesthetized with 1% lidocaine. Percutaneously, a fine needle aspiration was obtained and provided to the attending cytopathologist. The cytopathologist indicated that preliminary evaluation demonstrated adequate sampling for diagnosis. According to the same technique as above additional fine-needle aspirations were acquired to assure adequate diagnostic volume. The post procedure ultrasound demonstrates no evidence for hematoma. The site was dressed with a sterile dressing. The patient tolerated procedure well without incident. IMPRESSION: Uncomplicated ultrasound-guided fine-needle aspiration of right subhepatic soft tissue mass in the right renal fossa.
--- NOTE | 2018-01-03 19:52 | PN ---
Subjective Date of Service: 01/03/18 Interval History: no new c/o s/p renal bx without complication patient now walking in hallway with family plan for placement--[facility] at [facility] . Family History: Findings - Unremarkable Social History: Findings - Live withe her . Her daughter Amina is her SDM. No alcohol or tobacco use. 6 children. Past Medical History: Findings - R nephrectomy 12/2005 for renal cell ca. Dementia, DM. Objective Active Medications: . Hydrocodone Bitart/Acetaminophen ([place] 5-325 Tab*) 1 tab PO Q3H PRN PRN Reason: PAIN - MODERATE Last Admin: 01/03/18 08:57 Dose: 1 tab Aspirin (Aspirin Ec Tab*) 81 mg PO DAILY [facility] Cholecalciferol (Vitamin D Tab*) 1,000 units PO DAILY [facility] Last Admin: 01/03/18 08:59 Dose: 1,000 units Dextrose (D50w Syringe 50 Ml*) 12.5 gm IV PUSH .FOR FS < 60 - SS PRN PRN Reason: FS < 60 Fentanyl (Duragesic Patch 12 Mcg/Hr *) 12 mcg TRANSDERM Q72H [facility] Last Admin: 01/02/18 12:33 Dose: 12 mcg Hydralazine HCl (Apresoline Iv*) 10 mg IV Q4H PRN PRN Reason: Systolic >170 Last Admin: 01/03/18 04:07 Dose: 10 mg Insulin Human Lispro (Humalog*) 0 units SUBCUT ACHS [facility] PRN Reason: Protocol Last Admin: 01/03/18 16:42 Dose: 9 units Memantine (Namenda Tab*) 10 mg PO DAILY [facility] Last Admin: 01/03/18 08:58 Dose: 10 mg Ondansetron HCl (Zofran Odt Tab*) 4 mg SL Q4H PRN PRN Reason: NAUSEA/VOMITING Last Admin: 01/02/18 22:02 Dose: 4 mg Pharmacy Profile Note (Fentanyl Patch Check Q Shift) 1 note N/A 0700,1900 [facility] Last Admin: 01/03/18 19:26 Dose: 1 note . Vital Signs - 8 hr 01/03/18 01/03/18 01/03/18 12:45 12:53 12:59 Temperature 97.9 F 97.9 F Pulse Rate 111 111 Respiratory 18 18 18 Rate Blood Pressure 125/62 125/62 (mmHg) O2 Sat by Pulse 94 94 Oximetry 01/03/18 01/03/18 01/03/18 13:14 13:17 15:14 Temperature 99.9 F 100.1 F 100.0 F Pulse Rate 108 108 118 Respiratory 18 16 24 Rate Blood Pressure 134/61 145/77 144/67 (mmHg) O2 Sat by Pulse 95 94 94 Oximetry Oxygen Devices in Use Now: None Appearance: NAD, demented Eyes: No Scleral Icterus, PERRLA Ears/Nose/Mouth/Throat: Clear Oropharnyx Neck: NL Appearance and Movements; NL JVP, Trachea Midline Respiratory: Symmetrical Chest Expansion and Respiratory Effort Cardiovascular: NL Sounds; No Murmurs; No JVD, RRR Abdominal: NL Sounds; No Tenderness; No Distention Lymphatic: No Cervical Adenopathy Extremities: No Edema Skin: No Rash or Ulcers Neurological: NL Sensation Lines/Tubes/Other Access: Clean, Dry and Intact Peripheral IV Nutrition: Taking PO's Result Diagrams: 01/03/18 06:12 01/02/18 04:20 Additional Lab and Data: . Assess/Plan/Problems-Billing . Plan By Medical Problem: - Patient Problems (1) Renal cell carcinoma Current Visit: Yes Status: Acute Code(s): C64.9 - MALIGNANT NEOPLASM OF UNSP KIDNEY, EXCEPT RENAL PELVIS Comment: CT guided bx requested; done on 01/03/18 without complication. Continue fentanyl patch 12 mcg/hr, prn oxycodone, prn ondansetron. (2) Dementia Current Visit: Yes Status: Chronic Priority: High Code(s): F03.90 - UNSPECIFIED DEMENTIA WITHOUT BEHAVIORAL DISTURBANCE Comment: Patient felt to NOT be safe at home by her family. PT/OT eval. Placement efforts underway (3) Diabetes Current Visit: Yes Status: Chronic Priority: High Code(s): E11.9 - TYPE 2 DIABETES MELLITUS WITHOUT COMPLICATIONS SNOMED Code(s): 16016755 Comment: Hold metformin, pioglitazone. Lispro by [facility]. (4) Emesis Current Visit: Yes Status: Chronic Priority: High Code(s): R11.10 - VOMITING, UNSPECIFIED Comment: PRN ondansetron ODT. (5) HTN (hypertension) Current Visit: Yes Status: Chronic Priority: Medium Code(s): I10 - ESSENTIAL (PRIMARY) HYPERTENSION Comment: Hold losartan.
[2018-01-04 06:52] LABS: ABS Basophils 0.1 10^3/ul (0-0.2); ABS Eosinophils 0 10^3/ul (0-0.6); ABS Monocytes 1.4 10^3/ul (0-0.8); ABS Neutrophils 11.1 10^3/ul (1.5-7.7); ABS Nucleated RBC 0 10^3/ul; Eosinophil % 0.1 % (0-6); Hematocrit 34 % (35-47); Hemoglobin 11.6 g/dl (12.0-16.0); Lymphocyte % 7.2 % (25-47); Mean Corpuscular HGB Conc 34 g/dl (31-36); Mean Corpuscular Hemoglobin 30 pg (27-31); Mean Corpuscular Volume 87 fL (80-97); Mean Platelet Volume 8.8 um3 (7.4-10.4); Nucleated Red Blood Cells % 0; Platelet Count 163 10^3/ul (150-450); Red Blood Count 3.89 10^6/ul (4.0-5.4); Red Cell Distribution Width 15 % (10.5-15); White Blood Count 13.6 10^3/ul (3.5-10.8)
[2018-01-04] MEDS: fentaNYL Patch Check Q Shift 1 NOTE SCH ×2 (07:00→18:29)
[2018-01-04 07:06] LABS: EGFR Non-African American 57.6 (>60)
[2018-01-04] MEDS: Aspirin EC TAB* 81 MG TAB.EC PO SCH (08:59)
[2018-01-04] MEDS: Cholecalciferol TAB* 1000 UNITS PO SCH (08:59)
[2018-01-04] MEDS: Insulin LISPRO* 1 UNITS UNIT SUBCUT SCH ×4 (08:59→20:51)
[2018-01-04] MEDS: Memantine TAB* 10 MG PO SCH (08:59)
[2018-01-04] MEDS ORDERED: NS 0.9% 1000 ML* 1,000 ML IV ONE (15:28)
--- NOTE | 2018-01-04 15:33 | PN ---
Subjective Date of Service: 01/04/18 Interval History: . reviewed case with family today. ongoing plan for placement -- isaiah to [facility]. no distress, but tachycardia and tachypnea noted; CXR and IV bolus ordered ... Family History: Findings - Unremarkable Social History: Findings - Live withe her . Her daughter Amina is her SDM. No alcohol or tobacco use. 6 children. Past Medical History: Findings - R nephrectomy 12/2005 for renal cell ca. Dementia, DM. Objective Active Medications: . Hydrocodone Bitart/Acetaminophen ([place] 5-325 Tab*) 1 tab PO Q3H PRN PRN Reason: PAIN - MODERATE Last Admin: 01/03/18 08:57 Dose: 1 tab Aspirin (Aspirin Ec Tab*) 81 mg PO DAILY [facility] Last Admin: 01/04/18 08:59 Dose: 81 mg Cholecalciferol (Vitamin D Tab*) 1,000 units PO DAILY [facility] Last Admin: 01/04/18 08:59 Dose: 1,000 units Dextrose (D50w Syringe 50 Ml*) 12.5 gm IV PUSH .FOR FS < 60 - SS PRN PRN Reason: FS < 60 Fentanyl (Duragesic Patch 12 Mcg/Hr *) 12 mcg TRANSDERM Q72H [facility] Last Admin: 01/02/18 12:33 Dose: 12 mcg Hydralazine HCl (Apresoline Iv*) 10 mg IV Q4H PRN PRN Reason: Systolic >170 Last Admin: 01/03/18 04:07 Dose: 10 mg Sodium Chloride (Ns 0.9% 1000 Ml*) 1,000 mls @ 1,000 mls/hr IV .PER RATE ONE Stop: 01/04/18 16:27 Insulin Human Lispro (Humalog*) 0 units SUBCUT ACHS [facility] PRN Reason: Protocol Last Admin: 01/04/18 13:10 Dose: 9 units Memantine (Namenda Tab*) 10 mg PO DAILY [facility] Last Admin: 01/04/18 08:59 Dose: 10 mg Ondansetron HCl (Zofran Odt Tab*) 4 mg SL Q4H PRN PRN Reason: NAUSEA/VOMITING Last Admin: 01/02/18 22:02 Dose: 4 mg Pharmacy Profile Note (Fentanyl Patch Check Q Shift) 1 note N/A 0700,1900 [facility] Last Admin: 01/04/18 07:00 Dose: 1 note . Vital Signs - 8 hr 01/04/18 01/04/18 01/04/18 08:00 08:03 12:01 Temperature 98.4 F 99.6 F Pulse Rate 109 118 Respiratory 17 16 20 Rate Blood Pressure 158/70 149/73 (mmHg) O2 Sat by Pulse 94 96 Oximetry 01/04/18 15:16 Temperature 98.9 F Pulse Rate 110 Respiratory 30 Rate Blood Pressure 153/67 (mmHg) O2 Sat by Pulse 94 Oximetry Oxygen Devices in Use Now: None Appearance: elderly, frail. Eyes: No Scleral Icterus Ears/Nose/Mouth/Throat: Clear Oropharnyx Neck: NL Appearance and Movements; NL JVP Respiratory: Symmetrical Chest Expansion and Respiratory Effort Cardiovascular: NL Sounds; No Murmurs; No JVD, RRR - intermittent mild tachycardia Abdominal: NL Sounds; No Tenderness; No Distention Extremities: No Edema Skin: No Rash or Ulcers Neurological: NL Sensation Lines/Tubes/Other Access: Clean, Dry and Intact Peripheral IV Nutrition: Taking PO's Result Diagrams: 01/04/18 06:40 01/04/18 06:40 Additional Lab and Data: . Assess/Plan/Problems-Billing . Plan By Medical Problem: 82 yo female s/p nephrectomy, and now likely recurrence of renal cell carcinoma. s/p renal biopsy 01/03 without difficulty. Now, efforts underway for placement. - Patient Problems (1) Renal cell carcinoma Current Visit: Yes Status: Acute Code(s): C64.9 - MALIGNANT NEOPLASM OF UNSP KIDNEY, EXCEPT RENAL PELVIS Comment: CT guided bx requested; done on 01/03/18 without complication. Continue fentanyl patch 12 mcg/hr, prn oxycodone, prn ondansetron. (2) Dementia Current Visit: Yes Status: Chronic Priority: High Code(s): F03.90 - UNSPECIFIED DEMENTIA WITHOUT BEHAVIORAL DISTURBANCE Comment: Patient felt to NOT be safe at home by her family. PT/OT eval. Placement efforts underway (3) Diabetes Current Visit: Yes Status: Chronic Priority: High Code(s): E11.9 - TYPE 2 DIABETES MELLITUS WITHOUT COMPLICATIONS SNOMED Code(s): 82558046 Comment: Hold metformin, pioglitazone. Lispro by [facility]. (4) Emesis Current Visit: Yes Status: Chronic Priority: High Code(s): R11.10 - VOMITING, UNSPECIFIED Comment: PRN ondansetron ODT. (5) HTN (hypertension) Current Visit: Yes Status: Chronic Priority: Medium Code(s): I10 - ESSENTIAL (PRIMARY) HYPERTENSION Comment: Hold losartan.
--- NOTE | 2018-01-04 16:36 | RAD ---
Indication: Tachypnea/tachycardia. Abdominal mass. Comparison: January 02, 2018 CT. Technique: Upright AP 1545 hours Report: Mild prominence of the interstitial markings. Mild bibasilar subsegmental atelectasis. LEFT epicardial fat pad noted. Negative for pleural effusion or pneumothorax. Top normal heart size. Unremarkable central pulmonary vasculature. Negative for free air beneath the diaphragm. IMPRESSION: Mild bibasilar atelectasis. No compelling evidence for pulmonary edema.
[2018-01-04] MEDS: HYDROcodone/ACETAMIN 5-325 MG* 1 TAB PO PRN (16:46)
[2018-01-05] MEDS: fentaNYL Patch Check Q Shift 1 NOTE SCH ×2 (06:48→18:24)
[2018-01-05] MEDS: Insulin LISPRO* 1 UNITS UNIT SUBCUT SCH ×4 (08:28→21:10)
[2018-01-05] MEDS: Memantine TAB* 10 MG PO SCH (08:29)
[2018-01-05] MEDS: Cholecalciferol TAB* 1000 UNITS PO SCH (08:29)
[2018-01-05] MEDS: Aspirin EC TAB* 81 MG TAB.EC PO SCH (08:29)
[2018-01-05] MEDS: HYDROcodone/ACETAMIN 5-325 MG* 1 TAB PO PRN (08:29)
[2018-01-05] MEDS: fentaNYL PATCH 12 MCG/HR TRANSDERM SCH (12:21)
--- NOTE | 2018-01-05 20:09 | PN ---
Subjective Date of Service: 01/05/18 Interval History: . no new complaints family visiting plan for dispo to [facility] Family History: Findings - Unremarkable Social History: Findings - Live withe her . Her daughter Amina is her SDM. No alcohol or tobacco use. 6 children. Past Medical History: Findings - R nephrectomy 12/2005 for renal cell ca. Dementia, DM. Objective Active Medications: . Hydrocodone Bitart/Acetaminophen ([place] 5-325 Tab*) 1 tab PO Q3H PRN PRN Reason: PAIN - MODERATE Last Admin: 01/05/18 08:29 Dose: 1 tab Aspirin (Aspirin Ec Tab*) 81 mg PO DAILY [facility] Last Admin: 01/05/18 08:29 Dose: 81 mg Cholecalciferol (Vitamin D Tab*) 1,000 units PO DAILY [facility] Last Admin: 01/05/18 08:29 Dose: 1,000 units Dextrose (D50w Syringe 50 Ml*) 12.5 gm IV PUSH .FOR FS < 60 - SS PRN PRN Reason: FS < 60 Fentanyl (Duragesic Patch 12 Mcg/Hr *) 12 mcg TRANSDERM Q72H [facility] Last Admin: 01/05/18 12:21 Dose: 12 mcg Hydralazine HCl (Apresoline Iv*) 10 mg IV Q4H PRN PRN Reason: Systolic >170 Last Admin: 01/03/18 04:07 Dose: 10 mg Insulin Human Lispro (Humalog*) 0 units SUBCUT ACHS [facility] PRN Reason: Protocol Last Admin: 01/05/18 17:31 Dose: 9 units Memantine (Namenda Tab*) 10 mg PO DAILY [facility] Last Admin: 01/05/18 08:29 Dose: 10 mg Ondansetron HCl (Zofran Odt Tab*) 4 mg SL Q4H PRN PRN Reason: NAUSEA/VOMITING Last Admin: 01/02/18 22:02 Dose: 4 mg Pharmacy Profile Note (Fentanyl Patch Check Q Shift) 1 note N/A 0700,1900 [facility] Last Admin: 01/05/18 18:24 Dose: 1 note . Vital Signs - 8 hr 01/05/18 01/05/18 01/05/18 12:15 12:21 14:16 Temperature 98.0 F Pulse Rate 113 Respiratory 24 26 27 Rate Blood Pressure 151/73 (mmHg) O2 Sat by Pulse 95 Oximetry Oxygen Devices in Use Now: None Appearance: NAD Eyes: No Scleral Icterus Ears/Nose/Mouth/Throat: Clear Oropharnyx Neck: NL Appearance and Movements; NL JVP Respiratory: Symmetrical Chest Expansion and Respiratory Effort, - - smaller breaths; guarded 2/2 pain from tumor Cardiovascular: RRR Abdominal: NL Sounds; No Tenderness; No Distention Lymphatic: No Cervical Adenopathy Extremities: No Edema Skin: No Rash or Ulcers Neurological: - - demented Lines/Tubes/Other Access: Clean, Dry and Intact Peripheral IV Nutrition: Taking PO's Result Diagrams: 01/04/18 06:40 01/04/18 06:40 Additional Lab and Data: . Assess/Plan/Problems-Billing . Plan By Medical Problem: 82 yo female s/p nephrectomy, and now likely recurrence of renal cell carcinoma. s/p renal biopsy 01/03 without difficulty. Now, efforts underway for placement. - Patient Problems (1) Renal cell carcinoma Current Visit: Yes Status: Acute Code(s): C64.9 - MALIGNANT NEOPLASM OF UNSP KIDNEY, EXCEPT RENAL PELVIS Comment: CT guided bx requested; done on 01/03/18 without complication. Continue fentanyl patch 12 mcg/hr, prn oxycodone, prn ondansetron. awaiting pathology results 01/06/18 (possibly). (2) Dementia Current Visit: Yes Status: Chronic Priority: High Code(s): F03.90 - UNSPECIFIED DEMENTIA WITHOUT BEHAVIORAL DISTURBANCE Comment: Patient felt to NOT be safe at home by her family. PT/OT eval. Placement efforts underway (3) Diabetes Current Visit: Yes Status: Chronic Priority: High Code(s): E11.9 - TYPE 2 DIABETES MELLITUS WITHOUT COMPLICATIONS SNOMED Code(s): 23281587 Comment: Hold metformin, pioglitazone. Lispro by [facility]. (4) Emesis Current Visit: Yes Status: Chronic Priority: High Code(s): R11.10 - VOMITING, UNSPECIFIED Comment: PRN ondansetron ODT. (5) HTN (hypertension) Current Visit: Yes Status: Chronic Priority: Medium Code(s): I10 - ESSENTIAL (PRIMARY) HYPERTENSION Comment: Hold losartan.
[2018-01-06] MEDS: fentaNYL Patch Check Q Shift 1 NOTE SCH ×2 (06:53→18:39)
[2018-01-06] MEDS: Insulin LISPRO* 1 UNITS UNIT SUBCUT SCH ×4 (09:06→20:48)
[2018-01-06] MEDS: Cholecalciferol TAB* 1000 UNITS PO SCH (09:06)
[2018-01-06] MEDS: Memantine TAB* 10 MG PO SCH (09:06)
[2018-01-06] MEDS: Aspirin EC TAB* 81 MG TAB.EC PO SCH (09:06)
--- NOTE | 2018-01-06 16:20 | PN ---
Subjective Date of Service: 01/06/18 Interval History: Patient sitting up in bed visiting with family. She reports her pain is well controlled. Reports little appetite but has been eating a little per meal. Ambulating OOB to bathroom with walker. No further nausea or vomiting. Plan is for more of a palliative approach per pt and family Family History: Findings - Unremarkable Social History: Findings - Live withe her . Her daughter Amina is her SDM. No alcohol or tobacco use. 6 children. Past Medical History: Findings - R nephrectomy 12/2005 for renal cell ca. Dementia, DM. Objective Active Medications: Hydrocodone Bitart/Acetaminophen ([place] 5-325 Tab*) 1 tab PO Q3H PRN PRN Reason: PAIN - MODERATE Last Admin: 01/05/18 08:29 Dose: 1 tab Aspirin (Aspirin Ec Tab*) 81 mg PO DAILY [facility] Last Admin: 01/06/18 09:06 Dose: 81 mg Cholecalciferol (Vitamin D Tab*) 1,000 units PO DAILY [facility] Last Admin: 01/06/18 09:06 Dose: 1,000 units Dextrose (D50w Syringe 50 Ml*) 12.5 gm IV PUSH .FOR FS < 60 - SS PRN PRN Reason: FS < 60 Fentanyl (Duragesic Patch 12 Mcg/Hr *) 12 mcg TRANSDERM Q72H [facility] Last Admin: 01/05/18 12:21 Dose: 12 mcg Hydralazine HCl (Apresoline Iv*) 10 mg IV Q4H PRN PRN Reason: Systolic >170 Last Admin: 01/03/18 04:07 Dose: 10 mg Insulin Human Lispro (Humalog*) 0 units SUBCUT ACHS [facility] PRN Reason: Protocol Last Admin: 01/06/18 12:01 Dose: 15 units Memantine (Namenda Tab*) 10 mg PO DAILY [facility] Last Admin: 01/06/18 09:06 Dose: 10 mg Ondansetron HCl (Zofran Odt Tab*) 4 mg SL Q4H PRN PRN Reason: NAUSEA/VOMITING Last Admin: 01/02/18 22:02 Dose: 4 mg Pharmacy Profile Note (Fentanyl Patch Check Q Shift) 1 note N/A 0700,1900 [facility] Last Admin: 01/06/18 06:53 Dose: 1 note Vital Signs - 8 hr 01/06/18 01/06/18 11:21 12:21 Temperature 97.4 F Pulse Rate 110 Respiratory 28 Rate Blood Pressure 138/78 (mmHg) O2 Sat by Pulse 98 Oximetry Oxygen Devices in Use Now: None Appearance: 82 yo female A+O x2, pleasently confused, in NAD, [place] Eyes: No Scleral Icterus, PERRLA Ears/Nose/Mouth/Throat: NL Teeth, Lips, Gums, Mucous Membranes Moist Neck: NL Appearance and Movements; NL JVP Respiratory: Symmetrical Chest Expansion and Respiratory Effort, Clear to Auscultation Cardiovascular: NL Sounds; No Murmurs; No JVD, RRR, No Edema Abdominal: NL Sounds; No Tenderness; No Distention Extremities: No Edema, No Clubbing, Cyanosis Skin: No Rash or Ulcers, No Nodules or Sclerosis Neurological: Alert and Oriented x 3, NL Sensation, NL Muscle Strength and Tone Lines/Tubes/Other Access: Clean, Dry and Intact Peripheral IV Nutrition: Taking PO's Result Diagrams: 01/04/18 06:40 01/04/18 06:40 Additional Lab and Data: . Assess/Plan/Problems-Billing . Plan By Medical Problem: 82 yo female s/p nephrectomy, and now likely recurrence of renal cell carcinoma. s/p renal biopsy 01/03 without difficulty. - Patient Problems (1) Renal cell carcinoma Comment: CT guided bx done on 01/03/18 without complication, path still pending. Continue fentanyl patch 12 mcg/hr, prn oxycodone, prn ondansetron. awaiting pathology results (2) Dementia Comment: Patient felt to NOT be safe at home by her family. PT/OT eval. Placement efforts underway (3) Diabetes Comment: Hold metformin, pioglitazone. Lispro by [facility]. (4) Emesis Comment: Resolved PRN ondansetron ODT. (5) HTN (hypertension) Comment: Resume losartan. (6) DVT prophylaxis (7) Full code status Status and Disposition: inpatient. Plan for DC to [facility] tomorrow.
[2018-01-06] MEDS: HYDROcodone/ACETAMIN 5-325 MG* 1 TAB PO PRN (17:35)
[2018-01-07] MEDS: fentaNYL Patch Check Q Shift 1 NOTE SCH (06:46)
[2018-01-07] MEDS: Insulin LISPRO* 1 UNITS UNIT SUBCUT SCH ×2 (09:15→12:50)
[2018-01-07] MEDS: Memantine TAB* 10 MG PO SCH (09:16)
[2018-01-07] MEDS: hydrALAZINE IV* 20 MG/ML VIAL IV PRN (09:16)
[2018-01-07] MEDS: Aspirin EC TAB* 81 MG TAB.EC PO SCH (09:16)
[2018-01-07] MEDS: Cholecalciferol TAB* 1000 UNITS PO SCH (09:16)
--- NOTE | 2018-01-07 10:46 | DCNOTE ---
Subjective Date of Service: 01/07/18 Interval History: Patient reports some mild right low back pain otherwise she states she feels well and is excited she is leaving today. Denies abdominal pain or nausea. reports she ate breakfast this am. No fever/chills. Denies SOB/CP. Feels steady on her feet with use of walker Daughter at bedside. Family History: Findings - Unremarkable Social History: Findings - Live withe her . Her daughter Amina is her SDM. No alcohol or tobacco use. 6 children. Past Medical History: Findings - R nephrectomy 12/2005 for renal cell ca. Dementia, DM. Objective Active Medications: Hydrocodone Bitart/Acetaminophen ([place] 5-325 Tab*) 1 tab PO Q3H PRN PRN Reason: PAIN - MODERATE Last Admin: 01/06/18 17:35 Dose: 1 tab Aspirin (Aspirin Ec Tab*) 81 mg PO DAILY [facility] Last Admin: 01/07/18 09:16 Dose: 81 mg Cholecalciferol (Vitamin D Tab*) 1,000 units PO DAILY [facility] Last Admin: 01/07/18 09:16 Dose: 1,000 units Dextrose (D50w Syringe 50 Ml*) 12.5 gm IV PUSH .FOR FS < 60 - SS PRN PRN Reason: FS < 60 Fentanyl (Duragesic Patch 12 Mcg/Hr *) 12 mcg TRANSDERM Q72H [facility] Last Admin: 01/05/18 12:21 Dose: 12 mcg Hydralazine HCl (Apresoline Iv*) 10 mg IV Q4H PRN PRN Reason: Systolic >170 Last Admin: 01/07/18 09:16 Dose: 10 mg Insulin Human Lispro (Humalog*) 0 units SUBCUT ACHS [facility] PRN Reason: Protocol Last Admin: 01/07/18 09:15 Dose: 3 units Memantine (Namenda Tab*) 10 mg PO DAILY [facility] Last Admin: 01/07/18 09:16 Dose: 10 mg Ondansetron HCl (Zofran Odt Tab*) 4 mg SL Q4H PRN PRN Reason: NAUSEA/VOMITING Last Admin: 01/02/18 22:02 Dose: 4 mg Pharmacy Profile Note (Fentanyl Patch Check Q Shift) 1 note N/A 0700,1900 [facility] Last Admin: 01/07/18 06:46 Dose: 1 note Vital Signs - 8 hr 01/07/18 01/07/18 03:16 08:00 Temperature 98.6 F 98.4 F Pulse Rate 99 99 Respiratory 16 17 Rate Blood Pressure 151/68 176/81 (mmHg) O2 Sat by Pulse 94 97 Oximetry Oxygen Devices in Use Now: None Appearance: 82 yo female laying in bed A+O in NAD. Answers most questions appropriately; mild noted cognitive impairment (dementia) Eyes: No Scleral Icterus, PERRLA Ears/Nose/Mouth/Throat: NL Teeth, Lips, Gums, Mucous Membranes Moist Neck: NL Appearance and Movements; NL JVP Respiratory: Symmetrical Chest Expansion and Respiratory Effort, Clear to Auscultation Cardiovascular: NL Sounds; No Murmurs; No JVD, RRR, No Edema Abdominal: NL Sounds; No Tenderness; No Distention Lymphatic: No Cervical Adenopathy Extremities: No Edema, No Clubbing, Cyanosis Skin: No Rash or Ulcers, No Nodules or Sclerosis Neurological: Alert and Oriented x 3, NL Sensation, NL Gait, NL Muscle Strength and Tone Lines/Tubes/Other Access: Clean, Dry and Intact Peripheral IV Nutrition: Taking PO's Result Diagrams: 01/04/18 06:40 01/04/18 06:40 Additional Lab and Data: . Assess/Plan/Problems-Billing . Plan By Medical Problem: 82 yo female s/p nephrectomy, and now likely recurrence of renal cell carcinoma. s/p renal biopsy 01/03 without difficulty. - Patient Problems (1) Renal cell carcinoma Comment: CT guided bx done on 01/03/18 without complication, path still pending. Continue fentanyl patch 12 mcg/hr, prn oxycodone, prn ondansetron. awaiting pathology results (2) Dementia Comment: Patient felt to NOT be safe at home by her family. PT/OT eval. (3) Diabetes Comment: Hold metformin, pioglitazone. Lispro by [facility]. (4) Emesis Comment: Resolved PRN ondansetron ODT. (5) HTN (hypertension) Comment: Resume losartan. (6) Full code status Status and Disposition: inpatient. Plan for DC today to [facility]
[2018-01-07 11:34] VITALS: BP 158/69
--- NOTE | 2018-01-07 13:04 | DS ---
CC: Dr. jS Richmond * DISCHARGE SUMMARY: DATE OF ADMISSION: 01/02/18 DATE OF DISCHARGE: 01/07/18 HOSPITAL STATUS: Inpatient. PROVIDER: Rishabh Davis NP ATTENDING PHYSICIAN: Dr. Diehl * (report dictated by Rishabh Davis NP). PRIMARY CARE PROVIDER: Dr. Sj Richmond. DISCHARGE DIAGNOSIS: History of renal cell carcinoma with concern for new tumor burden, path still pending at the time of dictation. SECONDARY DIAGNOSES: 1. History of renal cell carcinoma, status post right radical nephrectomy. 2. Type 2 diabetic. 3. Hypertension. DISCHARGE MEDICATIONS: 1. Aspirin 81 mg p.o. daily. 2. Vitamin D 1000 units p.o. daily. 3. Namenda 10 mg p.o. daily. 4. Metformin 500 mg p.o. at bedtime. 5. Metformin 1000 mg p.o. q.a.m. 6. Actos 30 mg p.o. daily. 7. Cozaar 50 mg p.o. daily. 8. Fentanyl patch 12 mcg q.72 hours. 9. Zofran ODT 4 mg p.o. q.4 hours p.r.n. 10. Hydrocodone/acetaminophen 5/325 one tab p.o. q.3 hours p.r.n. ALLERGIES: No known allergies. HISTORY OF PRESENT ILLNESS AND HOSPITAL COURSE: Please see history and physical by Dr. Sawyer for full admission details, but in summary, this is an 82 -year-old female with a past medical history of renal cell carcinoma, status post right radical nephrectomy, who presented to the emergency department on with report of vomiting and abdominal pain. The patient was admitted to the hospitalist service and was started on a fentanyl patch at 12 mcg an hour and p.r.n. hydrocodone. Her vomiting resolved fairly quickly. She was given IV fluids as it was suspected that she was mildly dehydrated. She underwent a CT abdomen and pelvis with contrast which showed: "1. Presumably, the patient's right nephrectomy was due to renal cell carcinoma. The findings on today's CT examination indicate recurrence of malignancy in the right renal bed with lymphadenopathy in the right retroperitoneal lymph nodes and with either lymph node or soft tissue implants immediately medial to the spleen. 2. The patient's surgical history includes hysterectomy though the uterus appears to be visible in the pelvis. Please confirm the patient's surgical history. 3. There is free fluid in the pelvis, which is considered abnormal for postmenopausal woman and maybe related to additional metastases related to the process described above. 4. Additional chronic degenerative and iatrogenic findings described as above in the report." The patient underwent an abdominal ultrasound which showed, impression: "Two soft tissue mass in the right renal fossa corresponding to masses seen on the same day CT scan of the abdomen and pelvis. That appears to be amenable to ultrasound- guided biopsy." The patient underwent an ultrasound-guided biopsy with Dr. Noé Olivo on 01/03, in which states impression: "Uncomplicated ultrasound-guided fine needle aspiration of right subhepatic soft tissue mass in the right renal fossa." The patient has done well throughout her hospitalization. Her pain is much better controlled and her nausea resolved with no further vomiting. Her creatinine is normal at 0.93. Please see her lab reports for full details of laboratory data. Blood cultures were no growth, day 5. The patient's family has been at the bedside and very supportive. The plan at this time is to await pathology report, which is still pending today at discharge. Most likely, the patient will transition to a palliative/hospice arrangement at [facility] or after subacute rehab and goal for care is to manage her pain. The family is very realistic that there may be too much tumor burden to treat and may take a more palliative approach. The family wanted to wait for the path report to determine next course, but are very realistic that most likely this is advanced. DISCHARGE SUMMARY: 1. The patient will be discharged to [facility]. Her family will be driving her to the facility. The patient is able to use a walker with a steady gait and believe this will be a safe transfer for her. 2. Follow up with the [facility] primary care provider. If there are any further questions, please feel free to call my cell phone at [phone] or through the hospitalist office. TIME SPENT: Approximately 60 minutes was spent on this discharge. The patient is stable. RISHABH DAVIS, IGNACIO [id number]/[facility] #: [id number] NERE[place]
== END 2018-01-07 13:15 | DRG 688 ==
LOC: ED 03:16 → MED 10:33
PROVIDERS: ADMIT Internal Medicine; ATTEND Internal Medicine
PROC: 0TB03ZX Excision of Right Kidney, Percutaneous Approach, Diagnostic (ICD-10-PCS; principal; 2018-01-03)
DX: C64.1 Malignant neoplasm of right kidney, except renal pelvis (principal); F03.90 Unspecified dementia, unspecified severity, without behavioral disturbance, psychotic disturbance, mood disturbance, and anxiety; I10 Essential (primary) hypertension; E11.65 Type 2 diabetes mellitus with hyperglycemia; M81.0 Age-related osteoporosis without current pathological fracture; R59.1 Generalized enlarged lymph nodes; E86.0 Dehydration; R11.10 Vomiting, unspecified; Z90.710 Acquired absence of both cervix and uterus; Z90.5 Acquired absence of kidney; Z90.49 Acquired absence of other specified parts of digestive tract; Z82.49 Family history of ischemic heart disease and other diseases of the circulatory system; Z80.3 Family history of malignant neoplasm of breast; Z79.82 Long term (current) use of aspirin; Z79.84 Long term (current) use of oral hypoglycemic drugs; Z86.19 Personal history of other infectious and parasitic diseases
CPT/HCPCS: 36415; 49180; 71045; 74177; 76705; 76942; 80048; 80053; 81003; 81015; 83605; 83690; 84484; 85025; 85049; 85610; 85730; 86140; 87040; 88172; 88173; 88305; 88341; 88342; 93005; 99285; A9270-GY; G8978-GP-CJ; G8978-GP-CK; G8979-GP-CH; G8979-GP-CI; G8987-GO-CI; G8988-GO-CI; G8989-GO-CI; J0360; J2405; J3010; J3490; Q9967